=== PATIENT | male | born 1990 | race African-American/Black ===

== ENCOUNTER 2024-03-21 11:33 | Emergency (ER) | payer OTHER, SELFPAY ==
[2024-03-21 11:50] VITALS: BP 143/97
--- NOTE | 2024-03-21 14:23 | ED.GENMED ---
History of Present Illness
General
Chief Complaint: Musculo-Skeletal Complaint
Source: patient
Exam Limitations: none
Time Seen by Provider: 03/21/24 14:19
Nursing documentation reviewed up to this point in time: agreed with
History of Present Illness
History of Present Illness:
33-year-old right-handed male with no reported medical history presents to the ER for evaluation of right arm pain. Patient report symptom started about 2 weeks ago and he feels like over the past day or 2 they have been slightly worse. He reports
pain mainly in the elbow and radiates down towards the hand. Worse with certain movements particularly flexion or lifting. He reports some associated weakness in the hand and with certain movements will get paresthesias. He denies any fall or
trauma. He denies any swelling or redness. He denies any other complaints. He says he has never had similar symptoms in the past.
Past History
Past History
ED Past Medical History: None
ED Past Surgical History: None
Patient has exhibited threatening behavior?: No
Social History
Tobacco: Smoker
Alcohol: Occasional
Drug: None
Personal: Single
Living: with family
Employment: Employed
Family History
Family History: Other
Review of Systems
Review of Systems
All Other Systems: ROS reviewed and negative except as documented in HPI and ROS
Cardiac: Denies chest pain
Musculoskeletal: Reports muscle pain (Arm pain)
Neurological: Reports weakness and numbness
Phy Exam
Physical Exam
Physical Exam:
General: Well appearing and non-toxic
HEENT: protecting airway
Neck: No midline cervical tenderness, mild right paraspinal tenderness
Resp: No accessory muscle use
Abd: Non-distended
Extremities: No deformities noted; patient is strong radial and brachial pulses in the right upper extremity and brisk capillary refill in the distal right upper extremity; he has no edema in the right upper extremity; he has no tenderness in the
hand, wrist, forearm; he does have some medial greater than lateral as well as olecranon tenderness in the right elbow but no swelling and no joint effusion; he does allow for full range of motion in the right elbow although at extremes of flexion
and extension he does have pain particularly some radicular pain with full extension; he has no tenderness in the right shoulder
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
Psych: Normal affect
Skin: Intact
Scores
Heart Failure Risk
Heart Failure Risk Score: Not Applicable
Heart Score for Chest Pain Patients
STEMI patient?: Not applicable
Withdrawal Assessment of Alcohol
Withdrawal Assessment Completed?: Not applicable
Course
Orders/Labs/Results
Orders:
Orders
03/21/24 14:52
CR Elbow - Right Min 3 Views Urgent
Comment:
Reason For Exam: right elbow pain (medial TTP)
03/21/24 16:04
Naproxen [Naprosyn] 500 mg PO NOW STA
Prednisone [Deltasone] 50 mg PO NOW STA
Vital Signs
Initial and Last Documented VS:
Initial Vital Signs
Temp Pulse Resp BP Pulse Ox
36.9 C 89 18 143/97 99
03/21/24 11:50 03/21/24 11:50 03/21/24 11:50 03/21/24 11:50 03/21/24 11:50
Last Documented Vital Signs
Temp Pulse Resp BP Pulse Ox
36.9 C 89 18 143/97 99
03/21/24 11:50 03/21/24 11:50 03/21/24 11:50 03/21/24 11:50 03/21/24 11:50
MDM/Problems Addressed
Differential Diagnosis Includes:
Tendinitis/tendinopathy, ulnar neuritis, cervical radiculopathy, UCL injury
MDM/Problems Addressed:
33-year-old male presents for evaluation of subacute right arm pain�describes pain in the elbow that radiates down towards the hand. Worse with certain movements, no relieving factors noted. Associated with some weakness and paresthesias. Vitals
and exam as above. Clinical suspicion is that this is likely neuropathic pain although he does have some reproducible medial tenderness�this could be an ulnar neuritis or a cervical radiculopathy. Without a traumatic mechanism or repeated use much
lower suspicion that this is a fracture or even a tendinopathy or UCL injury. Will plan to check an x-ray of the elbow to start. If negative we will plan to treat for radiculopathy with conservative therapy.
X-ray reviewed by me no acute pathology. Suspect that this is likely a cervical radiculopathy; will plan to treat with short course of steroids, NSAIDs, rest. Referred to Ortho for follow-up. Also provided prescription for physical therapy. We
spoke about treatment plan and follow-up plan he feels comfortable with this. All questions answered.
*Radiology
Radiology exam reviewed: preliminary read by ED provider and radiology read reviewed
*Pulse Oximetry
Patient hypoxic: no
*Critical Care Note
Total Time (30-74mins, 75-104mins- exclusive of procedures): Not Applicable
Data Reviewed
Source: patient
ED Attending Note
-
Portions of this chart may have been created with voice recognition software.� Occasional wrong word or��sound alike� substitutions may have occurred due to the inherent limitations of voice recognition software.
Discharge Plan
Departure
Patient Disposition: Home (Routine Discharge)
Date of Disposition: 03/21/24
Time of Disposition: 15:59
Patient with high blood pressure during this ER visit?: Yes
Discharge Problem:
Elbow pain, right
Instructions: Radiculopathy of the neck and back (including sciatica)
Prescriptions:
New
prednisone 10 mg Tablet
See Rx Instructions .ROUTE .COMPLEX Qty: 30 0RF
Rx Instructions:
Take By Mouth:
40 mg daily x3 days, 30 mg daily x3 days,
20 mg daily x3 days, 10 mg daily x3 days.
naproxen 500 mg tablet
500 mg PO BID PRN (Reason: Pain) Qty: 30 0RF
Referrals:
Sebastián Jacinto MD [Active] - Call in 1-3 days for appt (Elbow specialist)
Stand Alone Forms: Return to Work
Activity Restrictions/Additional Instructions:
Thank you for visiting the Emergency Department at [facility].
1. Please schedule a follow up appointment as directed. Call first thing tomorrow morning to make an appointment.
2. If indicated, please take your medications as instructed and indicated on discharge paperwork.
3. If any of your symptoms do not improve, or persist, or become more severe within 6-12 hours, please return to the emergency department for further care.
4. Please return to the emergency department if you develop a headache, neck pain/stiffness, fever greater than 100.4F, chest pain, shortness of breath, persistent nausea, vomiting, slurred speech, difficulty walking, numbness/tingling, weakness,
signs of infection or any other symptoms that are worrisome to you.
Please call [phone] if you have any questions.
Interventions
Interventions:
*Risk Screen - Suicide Last Done: 03/21/24 11:50
*General Assessment Last Done: 03/21/24 11:50
*ED COVID-19 Vaccine History Last Done: 03/21/24 13:49
ED-Musculoskeletal Assessment Last Done: 03/21/24 13:49
Discharge Date and Time
Print Language: BRUNEIAN
[2024-03-21] MEDS: DELTASONE 50 MG PO (16:11)
[2024-03-21] MEDS: NAPROSYN 500 MG PO (16:11)
== END 2024-03-21 16:16 | disposition home or self-care (01) ==
LOC: EMR 11:33
PROVIDERS: EMERGENCY PHYSICIAN Emergency Medicine
DX: M25.521 Pain in right elbow (principal); R20.2 Paresthesia of skin; F17.200 Nicotine dependence, unspecified, uncomplicated
CPT/HCPCS: 99283; 73080